=== PATIENT | male | born 1945 | race Caucasian/White ===

== ENCOUNTER 2025-01-09 14:11 | Inpatient (IN) | payer OTHER ==
[2025-01-09] VITALS (9 sets, daily range): BP systolic 121–167; BP diastolic 64–87; PULSE 72–100; RESP 18–20; TEMP 97.2–98.4; O2SAT 94–98
[~2025-01-09] VITALS: Ht 182.9 cm; Wt 153.3 kg
[2025-01-09] MEDS ORDERED: LACTATED RINGERS 1,000 ML ONE (14:52)
[2025-01-09] MEDS: LACTATED RINGERS 1,000 ML IV SCH (14:57)
[2025-01-09 15:02] LABS: BASOPHIL % 0.2 % (0.2-1.2); EOSINOPHIL % 0.2 % (0.0-5.0); HEMATOCRIT(ML) 47.2 % (37.0-53.0); HEMOGLOBIN 15.3 g/dL (13.9-16.3); LYMPHOCYTES # 0.97 10^3/uL1 (1.0-4.8); LYMPHOCYTES % 5.3 % (24.0-44.0); MEAN CORP HGB 29.5 pg (26-34); MEAN CORP HGB CONCENTRATION 32.4 g/dL (33-36.5); MEAN CORP VOLUME 91.1 fL (78-100); MONOCYTES # 1.1 10^3/uL (0.3-0.8); MONOCYTES % 5.9 % (5.0-12.0); NEUTROPHIL # 15.9 10^3/uL (1.8-7.7); NEUTROPHILS % 87.7 % (41.0-85.0); PLATELET COUNT 236 10^3/uL (150-400); RED BLOOD CELL 5.18 10^6/uL (4.50-5.90); RED CELL DISTRIBUTION WIDTH 13.8 % (11.5-14.5); WHITE BLOOD CELL 18.2 10^3/uL (4.5-11.0)
[2025-01-09 15:04] LABS: +ADD MANUAL DIFF(NO CHRG) NO
[2025-01-09 15:16] LABS: PROTHROMBIN PROTIME 10.4 SEC (9.3-11.6)
[2025-01-09 15:38] LABS: ALBUMIN(ML) 3.7 g/dL (3.4-5.0); ALBUMIN/GLOBULIN RATIO 1.193; ANION GAP 12.1; BUN/CREATININE RATIO 21.55 (10.0-20.0); CALCIUM 8.9 mg/dL (8.4-10.5); CARBON DIOXIDE 27.3 mmol/L (20.0-32); CREATININE SERUM 1.16 mg/dL (0.59-1.40); EST GFR, NON-AA 61.1 (>/=60); POTASSIUM 3.4 mmol/L (3.6-5.2)
[2025-01-09 15:39] LABS: CREATINE KINASE MB 5.4 ng/mL (0.5-3.6)
[2025-01-09] MEDS ORDERED: IBUP200T49 PO (18:06)
[2025-01-09] MEDS ORDERED: TAMS-14 PO (18:06)
[2025-01-09] MEDS ORDERED: METO-236 PO (18:06)
[2025-01-09] MEDS ORDERED: CHLO25TA PO (18:06)
[2025-01-09] MEDS ORDERED: LORA10TA3 PO (18:06)
[2025-01-09] MEDS ORDERED: ZOLP5TAB6 PO (18:06)
[2025-01-09] MEDS ORDERED: ASPI-667 PO (18:06)
[2025-01-09] MEDS ORDERED: ZOFRAN IV PRN (18:30)
[2025-01-09] MEDS ORDERED: NITROSTAT SL PRN (18:30)
[2025-01-09] MEDS ORDERED: DUONEB 0.5-3(2.5) MG/3 ML IH PRN (18:30)
[2025-01-09] MEDS ORDERED: NICOTINE 21 MGPATCH TD PRN (18:30)
[2025-01-09] MEDS ORDERED: DEXTROSE 50%-WATER SYRINGE IV PRN (18:30)
[2025-01-09] MEDS ORDERED: APRESOLINE IV PRN (18:30)
[2025-01-09] MEDS: ULTRAM PO PRN (19:33)
[2025-01-09] MEDS: CLARITIN PO SCH (19:34)
[2025-01-09] MEDS: LOVENOX SQ SCH (19:34)
[2025-01-09] MEDS: AMBIEN PO SCH (21:00)
[2025-01-09] MEDS: FLOMAX PO SCH (21:29)
[2025-01-09] MEDS: MORPHINE SULFATE IV PRN (22:48)
[2025-01-10] VITALS (7 sets, daily range): BP systolic 128–153; BP diastolic 70–79; PULSE 85–93; RESP 15–22; TEMP 97.2–98.5; O2SAT 92–97
[2025-01-10] MEDS: ROBAXIN PO PRN (02:42)
[2025-01-10 06:08] LABS: HEMATOCRIT(ML) 44.1 % (37.0-53.0); HEMOGLOBIN 14.5 g/dL (13.9-16.3); MEAN CORP HGB 29.7 pg (26-34); MEAN CORP HGB CONCENTRATION 32.9 g/dL (33-36.5); MEAN CORP VOLUME 90.4 fL (78-100); RED BLOOD CELL 4.88 10^6/uL (4.50-5.90); WHITE BLOOD CELL 8.5 10^3/uL (4.5-11.0)
[2025-01-10 06:41] LABS: ALBUMIN(ML) 3.5 g/dL (3.4-5.0); ALBUMIN/GLOBULIN RATIO 1.129; ANION GAP 10.3; BUN/CREATININE RATIO 18.86 (10.0-20.0); CALCIUM 8.5 mg/dL (8.4-10.5); CARBON DIOXIDE 29.1 mmol/L (20.0-32); CREATINE KINASE MB 3.6 ng/mL (0.5-3.6); CREATININE SERUM 1.06 mg/dL (0.59-1.40); EST GFR, NON-AA 67.7 (>/=60); POTASSIUM 3.4 mmol/L (3.6-5.2)
[2025-01-10] MEDS: PROTONIX IV IV SCH (08:29)
[2025-01-10] MEDS: ASPIRIN PO SCH (08:29)
[2025-01-10] MEDS: CHLORTHALIDONE PO SCH (08:29)
[2025-01-10] MEDS: TOPROL-XL PO SCH (08:30)
[2025-01-10] MEDS: LIDODERM TP SCH (14:57)
[2025-01-11] VITALS (7 sets, daily range): BP systolic 120–158; BP diastolic 63–93; PULSE 84–88; RESP 14–22; TEMP 97.2–98.2; O2SAT 92–99
[2025-01-11 05:49] LABS: HEMATOCRIT(ML) 43.7 % (37.0-53.0); HEMOGLOBIN 14.4 g/dL (13.9-16.3); MEAN CORP HGB 29.8 pg (26-34); MEAN CORP VOLUME 90.3 fL (78-100); RED BLOOD CELL 4.84 10^6/uL (4.50-5.90); RED CELL DISTRIBUTION WIDTH 13.9 % (11.5-14.5); WHITE BLOOD CELL 9.2 10^3/uL (4.5-11.0)
[2025-01-11 06:02] LABS: ANION GAP 9.1; BUN/CREATININE RATIO 21.21 (10.0-20.0); CALCIUM 8.4 mg/dL (8.4-10.5); CARBON DIOXIDE 30.9 mmol/L (20.0-32); CREATININE SERUM 0.99 mg/dL (0.59-1.40); EST GFR, NON-AA 73.3 (>/=60)
[2025-01-11 07:07] LABS: BILIRUBIN,URINE NEGATIVE (NEGATIVE); LEUKOCYTE ESTERASE ,URINE NEGATIVE (NEGATIVE); NITRATE,URINE NEGATIVE (NEGATIVE); PH,URINE 5.5 (4.5-8.0); UROBILINOGEN,URINE 0.2 E.U./dL (0.2)
[2025-01-11 07:08] LABS: APPEARANCE,URINE CLEAR; UA COLOR YELLOW
[2025-01-11 07:16] LABS: UAMPH METHAMP(SCRN) NEGATIVE (co1000ng/mL); UR MDMA (ECSTASY) SCRN NEGATIVE (c/o300ng/mL); UR METHADONE SCRN NEGATIVE (c/o300ng/mL); UR OPIATE SCRN NEGATIVE (c/o300ng/mL); UR PHENCYCLIDINE (PCP) SCRN NEGATIVE (c/o 25ng/mL); UR TETRAHYDROCANNABINOL SCRN NEGATIVE (c/o 50ng/mL)
[2025-01-11] MEDS ORDERED: ASPIRIN EC PO ONE (07:48)
[2025-01-11] MEDS ORDERED: COLACE PO ONE (07:48)
[2025-01-11] MEDS ORDERED: KLOR-CON 10 PO ONE ×2 (07:48→12:01)
[2025-01-11] MEDS ORDERED: MAGNESIUM 2 GRAM/50ML 50 ML IV ONE (07:49)
[2025-01-11] MEDS: COLACE PO SCH ×2 (08:31→20:02)
[2025-01-11] MEDS: KLOR-CON 10 PO ONE ×3 (08:32→15:57)
[2025-01-11] MEDS ORDERED: NS 250ML 250 ML ONE (08:49)
[2025-01-11] MEDS: MAGNESIUM 2 GRAM/50ML 50 ML IV ONE (09:02)
[2025-01-11] MEDS ORDERED: DULCOLAX RC PRN (11:30)
[2025-01-11] MEDS: MIRALAX PO ONE (12:05)
[2025-01-11] MEDS: TYLENOL PO PRN (15:58)
[2025-01-11] MEDS ORDERED: CLARITIN ONE (19:57)
[2025-01-11] MEDS ORDERED: LOVENOX SQ ONE (19:58)
[2025-01-11] MEDS: LOVENOX SQ SCH (20:01)
[2025-01-11] MEDS: CLARITIN PO SCH (20:02)
[2025-01-12 04:00] VITALS: BP 124/79; PULSE 83; RESP 17; TEMP 97.6; O2SAT 95
[2025-01-12 08:36] LABS: ANION GAP 12.3; BUN/CREATININE RATIO 22.22 (10.0-20.0); CALCIUM 8.6 mg/dL (8.4-10.5); CREATININE SERUM 0.9 mg/dL (0.59-1.40); EST GFR, NON-AA 81.8 (>/=60); POTASSIUM 3.3 mmol/L (3.6-5.2)
[2025-01-12 10:58] VITALS: BP 140/77; PULSE 85; RESP 20; TEMP 99; O2SAT 95
[2025-01-12 11:30] VITALS: BP 107/58; PULSE 81; RESP 20; TEMP 97.3; O2SAT 95
[2025-01-12] MEDS ORDERED: METH-621 PO (16:17)
[2025-01-12 16:18] VITALS: BP 118/63; PULSE 83; RESP 18; TEMP 97.6; O2SAT 95
[2025-01-12 17:00] VITALS: BP 118/63; PULSE 83; RESP 18; TEMP 97.6; O2SAT 95
== END 2025-01-12 18:25 | disposition home or self-care (01) | DRG 185 ==
LOC: ER 14:11 → OBSVTOIN 16:31 → OBS 16:31 → MS 16:32
PROVIDERS: ADMIT Student in an Organized Health Care Education/Training Program; ATTEND Internal Medicine
DX: S22.43XA Multiple fractures of ribs, bilateral, initial encounter for closed fracture (principal); I10 Essential (primary) hypertension; E87.6 Hypokalemia; D72.829 Elevated white blood cell count, unspecified; Z79.82 Long term (current) use of aspirin; Z85.51 Personal history of malignant neoplasm of bladder; Z96.652 Presence of left artificial knee joint; V43.52XA Car driver injured in collision with other type car in traffic accident, initial encounter; Y93.89 Activity, other specified; Y92.488 Other paved roadways as the place of occurrence of the external cause; Y99.8 Other external cause status
CPT/HCPCS: 36415; 71045; 72170; 74177; 80048; 80053; 80307; 82077; 82550; 82553; 83735; 84484; 85025; 85027; 85610; 85730; 87077; 87086; 87186; 93005; 96360; 96361; 99291; G0378; J1650; J3475; J3490; J7050; J7120; J8499; Q9965; C9113

== ENCOUNTER 2025-01-09 14:11 | Emergency (ER) | payer MEDICARE ==
[2025-01-09] MEDS ORDERED: METO-236 PO (18:06)
[2025-01-09] MEDS ORDERED: ASPI-667 PO (18:06)
[2025-01-09] MEDS ORDERED: LORA10TA3 PO (18:06)
[2025-01-09] MEDS ORDERED: CHLO25TA PO (18:06)
[2025-01-09] MEDS ORDERED: TAMS-54 PO (18:06)
[2025-01-09] MEDS ORDERED: IBUP200T49 PO (18:06)
[2025-01-09] MEDS ORDERED: ZOLP5TAB6 PO (18:06)
== END 2025-01-09 16:30 | disposition admitted as inpatient to this hospital (09) ==
LOC: ER 14:11
DX: S22.32XA Fracture of one rib, left side, initial encounter for closed fracture (principal); S22.31XA Fracture of one rib, right side, initial encounter for closed fracture; X58.XXXA Exposure to other specified factors, initial encounter; Y93.89 Activity, other specified; Y92.89 Other specified places as the place of occurrence of the external cause; Y99.8 Other external cause status
CPT/HCPCS: 99291; 74177; 96360; 71045; 96361; 72170; 80053; 85025; 36415; 84484; 80307; 82553 ×2; 82077; 82550; 85610; 85730; 93005; J7120; Q9965